=== PATIENT | female | born 1990 ===

== ENCOUNTER 2022-02-14 16:35 | Inpatient (IN) | payer BC ==
[~2022-02-14] VITALS: Ht 162.6 cm; Wt 79.1 kg
[2022-02-14] VITALS (24 sets, daily range): BP systolic 89–129; BP diastolic 53–71; PULSE 53–99; TEMP 98.1–98.4
--- NOTE | 2022-02-14 16:30 | NUR ---
1630 PT ARRIVED AMBULATORY TO UNIT COMPLAINING OF POTENTIAL SROM. "THE FLUID LEAKING OUT OF ME IS GREEN AND BROWN, IT DOES NOT LOOK LIKE PEE" PER PT. PT STATES NOT FEELING CONTRACTIONS BUT DOES FEEL "BELLY TIGHTENING AT TIMES." PT REPORTS POSITIVE MOVEMENT. PT CHANGED INTO GOWN AND PLACED ON EFM AND TOCO. MINIMAL VARIABILITY INITIALLY WITH NO ACCELERATIONS OR DECELERATIONS. PTS VITAL SIGNS STABLE. 1638 AMNITEST POSITIVE AT THIS TIME. SVE 3/-2. LARGE AMOUNT OF MECONIUM FLUID WITH PARTICULATE NOTED WITH SVE. WILL NOTIFY DR. SANCHEZ.
[2022-02-14 17:40] LABS: BASO % 0.4 % (0.0-2.0); EOS % 0.2 % (0.0-4.0); GRAN # 6.1 K/mm3 (1.4-6.5); GRAN % 71.1 % (42.2-75.2); HEMOGLOBIN 10.7 g/dl (12.5-16.0); LYMPH # 1.5 K/mm3 (1.2-3.4); LYMPH % 17.1 % (20.0-51.0); MEAN CELL VOLUME 82 fl (80.0-100.0); MEAN CORPUSCULAR HEMOGLOBIN 27 pg (27-31); MEAN CORPUSCULAR HGB CONC 33 g/dl (33.0-37.0); MEAN PLATELET VOLUME 13.3 fl (7.4-10.4); MONO # 0.9 K/mm3 (0.1-0.6); MONO % 10.8 % (1.7-9.3); PLATELET COUNT 158 K/mm3 (130-400); RED BLOOD COUNT 3.92 M/mm3 (4.10-5.30); REDCELL DISTRIBUTION WIDTH-CV 13.3 % (11.5-14.5)
[2022-02-14 17:43] LABS: HEMATOCRIT 32.1 % (37.0-47.0)
[2022-02-14] MEDS ORDERED: CELEXA40 MG PO (17:50)
[2022-02-14] MEDS ORDERED: CELEXA 20MG20 MG/TAB PO (17:50)
[2022-02-15] VITALS (41 sets, daily range): BP systolic 81–120; BP diastolic 44–76; PULSE 57–88; TEMP 97.5–99
--- NOTE | 2022-02-15 00:01 | NUR ---
2340 - Pt requesting epidural at this time. Adriel Quinn CRNA notified, will come to bedside. 2350 - RENETTA Dillon on unit. Pt up to bathroom at this time. 2353 - Pt positioned onto edge of bed. Wilma reviewing procedure, risks, and benefits with patient, verbalized understanding. 0001 - Single shot by RENETTA Dillon. Pt denies any adverse reactions. 0010 - Pt positioned to wedge left for comfort. Plan of care and safety precautions reviewed. Bed in low and locked position, call light within reach. See anesthesia record.
--- NOTE | 2022-02-15 00:50 | NUR ---
Mora catheter placed at this time to dependent drainage. Clear yellow urine out. Secured to leg with statlock. SVE /-2. Repositioned back to wedge left per patients request.
--- NOTE | 2022-02-15 04:30 | NUR ---
0425 - Pt reports feeling more rectal pressure. SVE complete/+1. Pt educated on pushing techniques, verbalized understanding. Nursery nurse and charge nurse updated. Room set up for delivery. 0435 - Mora catheter out at this time. 200 mL clear yellow urine. Pt positioned into footplates. 0440 - Initial push at this time. 0442 - Variable deceleration down to 90 bpm after contraction with spontaneous return to baseline of 150bpm. 0451 - Recurrent variable decelerations down to 90 bpm after contractions with spontaneous return to baseline of 150 bpm. Pt instructed to breath through next 2 contractions. 0455 - No decelerations with patient breathing through contractions and patient denies strong urge to push. Dr. Treviño notified, see physician notification.
--- NOTE | 2022-02-15 05:00 | NUR ---
Pt positioned into high fowlers with pillow support. Updated on plan of care to labor down for 30 minutes - 1 hour unless patient feels strong urge to push. Pt encouraged to rest at this time. Call light within reach.
--- NOTE | 2022-02-15 07:05 | NUR ---
0647- Roles at bedside, evaluates pushing, reviews strip at bedside. MD out to nurses station. Pt continues pushing with UCs. FHR not tracing with pushing, suspecting variable decelerations. 0657- Roles called to bedside for delivery. Mildred and Shyann, Nursery RNs at bedside. Pt and room prepped for delivery. Pt continues pushing with UCs. 0705- of viable female infant, placed on mother's abd, tended to by nursery staff. Pitocin off. Cord clamped and cut. Cord segment for cord gas collection, cord blood collected. Periuretheral laceration repaired by . Straight cath with approx 75mls noted. 0724- Spontaneous delivery of placenta. Pitocin restarted at 333ml/hr. Fundus massaged to firm by . Bleeding WNL. Pericare completed, chux changed, ice pack to perineum. Pt tolerated. well. skin-2-skin with mom.
[2022-02-16 04:15] VITALS: BP 108/67; PULSE 69; TEMP 98.4
[2022-02-16 07:30] VITALS: BP 100/55; PULSE 66; TEMP 98.4
[2022-02-16] MEDS ORDERED: IBU800 M1 PO (08:36)
--- NOTE | 2022-02-16 09:19 | NUR ---
Initial visit attempt; Nurse with family, It Business Analyst left card offering congratulations to the family for the of their daughter and information regarding the availability of Spiritual Care at our hospital.
--- NOTE | 2022-02-16 11:16 | NUR ---
SW responded to consult for resources. The patient is a single mother. SW met with the patient. The patient lives alone in [place]. This is the patient's first child. She works for the [employer] and states she will be taking maternity leave. The patient states that she is from [place] and her family all lives in [place]. Her ex- brought her out here. She states that her ex- is not father of baby and that the father of the baby is not involved. She states that her family will be coming from [place] to see her and baby. The patient states that she has a bassinet for baby and carseat. She states that she does not qualify for WIC. The patient had no questions or concerns about bringing baby home upon discharge. She states that she is having some difficulties finding daycare. She states that she does have baby on a waitlist. SW informed her of [facility] in [place], which can help with childcare teacher program assessments and assistance. SHAZIA updated the patient's RN.
[2022-02-16 13:34] VITALS: BP 105/61; PULSE 67; TEMP 97.9
--- NOTE | 2022-02-16 17:30 | NUR ---
1730-Reviewed dishcarge instructions with patient. Instructed on need to follow up at 6 week apt. Patient verbalised uderstanding and denies questions. 1805-Patient ambulatory off unit with in carseat accompanied by this RN.
== END 2022-02-16 18:05 | disposition home or self-care (01) | DRG 807 ==
LOC: LDRO 16:35 → LDR 16:50 → OB 02-15 10:30
PROVIDERS: ADMIT Obstetrics & Gynecology
PROC: 10E0XZZ Delivery of Products of Conception, External Approach (ICD-10-PCS; principal; 2022-02-15)
PROC: 0UQMXZZ Repair Vulva, External Approach (ICD-10-PCS; 2022-02-15)
DX: O77.0 Labor and delivery complicated by meconium in amniotic fluid (principal); Z37.0 Single live birth; O99.344 Other mental disorders complicating childbirth; F41.9 Anxiety disorder, unspecified; F32.A Depression, unspecified; O71.82 Other specified trauma to perineum and vulva; O76 Abnormality in fetal heart rate and rhythm complicating labor and delivery; O35.8XX0 Maternal care for other (suspected) fetal abnormality and damage, not applicable or unspecified; Z3A.38 38 weeks gestation of pregnancy
CPT/HCPCS: J2590; J2795; J7120